=== PATIENT | female | born 1995 | race American Indian/Alaskan Native ===

== ENCOUNTER 2020-12-28 18:07 | Inpatient (IN) | payer MEDICAID ==
[2020-12-28 19:03] LABS: Bilirubin,Urine NEG (Negative); Blood,Urine NEG (Negative); Color,Urine Yellow (Yellow); Mucus,Urine 2+ /HPF; Protein,Urine <15 mg/dL mg/dL (Negative); Urobilinogen,Urine < 2.0 mg/dL (<2.0)
[2020-12-28 19:11] LABS: Hemoglobin 12.4 gm/dl (10.1-14.3); Mean Corpuscular HGB Conc 33 % (30-34); Mean Corpuscular Volume 84 fl (79-97); Platelet Count 311 K/mm3 (140-440); Red Blood Count 4.54 M/mm3 (3.65-5.03); Red Cell Distribution Width 14.7 % (13.2-15.2)
[2020-12-28 19:35] LABS: Alanine Aminotransferase 9 units/L (7-56); Uric Acid 5.5 mg/dL (3.5-7.6)
[2020-12-28] MEDS ORDERED: MAGNESIUM SULFATE 4 GM/100 ML BAG IV ONE (19:39)
[2020-12-28] MEDS ORDERED: DINOPROSTONE 10 MG VAG SUPP VG ONE (19:39)
[2020-12-28] MEDS ORDERED: hydrALAZINE 20 MG/1 ML INJ IV ONE (19:40)
[2020-12-28] MEDS ORDERED: fentaNYL 100 MCG/2 ML INJ IV PRN ×2 (19:50→20:55)
[2020-12-28] MEDS ORDERED: BUTORPHANOL 2 MG/1 ML INJ IV PRN ×3 (19:50→20:55)
[2020-12-28] MEDS ORDERED: AMPICILLIN/NS 2 GM/100 ML 2 GM/100 ML BAG IV ONE ×2 (19:51→20:55)
[2020-12-28] MEDS ORDERED: LACTATED RINGERS 1,000 ML IV SCH (20:00)
[2020-12-28] MEDS ORDERED: LIDOCAINE (2%) 20 MG/1 ML VIAL 20 ML MDV INFILTRATI ONE (20:41)
[2020-12-28] MEDS ORDERED: ePHEDrine SULFATE 50 MG/1 ML INJ IV PRN (20:41)
[2020-12-28] MEDS ORDERED: TERBUTALINE 1 MG/1 ML INJ SUB-Q PRN (20:41)
[2020-12-28] MEDS ORDERED: MINERAL OIL 30 ML ORAL LIQD PO PRN (20:41)
[2020-12-28] MEDS ORDERED: OXYTOCIN DRIP 30 UNITS/500 ML BAG IV SCH ×2 (21:00)
--- NOTE | 2020-12-28 21:13 | History and Physical Report ---
History of Present Illness Date of examination: 12/28/20 Date of admission: 12/28/20 18:29 Chief complaint: "I was sent here by my Dr cause my b/p is up" History of present illness: 25 y/o presented to OB triage at 36.1 wks by LACEY Carter r/t pt's c/o headaches, blurred vision, and edema. She had an elevated b/p and 2+ urine protien. Pt admitted to occ mild uc and active FM. She denied VB or LOF. Pt initiated her pnc at [facility] at 15 1/7 wks. She was co managed by ELIAS r/t maternal obesity. She has a medical hx of anemia and has been taking Fe for same. She had an uti in preg which was treated. Surgical/social hx is unremarkable. Pt reports a family hx of DM. She was admitted to L&D for an IOL r/t severe preeclampsia. Past History Past Medical History: other (anemia, obesity) Past Surgical History: no surgical history Family/Genetic History: diabetes Social history: single, full code - Obstetrical History Expected Date of Delivery: 01/24/21 Actual Gestation: 36 Week(s) 1 Day(s) : 3 Para: 1 Hx # Term Pregnancies: 1 Number of Pregnancies: 0 Spontaneous Abortions: 1 Number of Living Children: 1 Medications and Allergies Allergies Allergy/AdvReac Type Severity Reaction Status Date / Time No Known Allergies Allergy Verified 12/28/20 18:28 Active Meds: Active Medications Butorphanol Tartrate (Butorphanol 2 Mg/1 Ml Inj) 1 mg IV Q2H PRN PRN Reason: Pain, Moderate(4-6) LABOR PAIN Ephedrine Sulfate (Ephedrine Sulfate 50 Mg/1 Ml Inj) 10 mg IV Q2M PRN PRN Reason: Hypotension Magnesium Sulfate (Magnesium Sulfate 40gm/1000ml) 40 gm in 1,000 mls @ 50 mls/hr IV DIRECT MERVAT Lactated Ringer's (Lactated Ringers) 1,000 mls @ 125 mls/hr IV DIRECT MERVAT Last Admin: 12/28/20 20:43 Dose: 125 mls/hr Documented by: Oxytocin/Sodium Chloride (Pitocin/Ns 30 Unit/500ml) 30 units in 500 mls @ 2 mls/hr IV TITR MERVAT; Protocol Oxytocin/Sodium Chloride (Pitocin/Ns 30 Unit/500ml) 30 units in 500 mls @ 40 mls/hr IV TITR MERVAT; Protocol Ampicillin Sodium (Ampicillin/Ns 1 Gm/50 Ml) 1 gm in 50 mls @ 100 mls/hr IV Q4H [facility]; Protocol Labetalol HCl (Labetalol 100 Mg Tab) 100 mg PO BID [facility] Last Admin: 12/28/20 20:34 Dose: 100 mg Documented by: Mineral Oil (Mineral Oil 30 Ml Oral Liqd) 30 ml PO QHS PRN PRN Reason: Constipation Terbutaline Sulfate (Terbutaline 1 Mg/1 Ml Inj) 0.25 mg SUB-Q ONCE PRN PRN Reason: Hyperstimulation/Hypertonicity Review of Systems All systems: negative Eyes: deferred Ears, nose, mouth and throat: deferred Breasts: normal Genitourinary: normal appearance Rectal Exam: deferred - Vital Signs Vital signs: Vital Signs Pulse BP 68 161/91 12/28/20 18:20 12/28/20 18:20 Temp Pulse Resp BP Pulse Ox 98.5 F 65 12 146/83 99 12/28/20 20:36 12/28/20 20:36 12/28/20 20:36 12/28/20 20:36 12/28/20 20:36 - Physical Exam Breasts: Positive: normal Abdomen: Positive: normal appearance, soft, normal bowel sounds Genitourinary (Female): Positive: normal external genitalia, normal perenium Vulva: both: normal Vagina: Positive: normal moisture Uterus: Positive: enlarged, normal contour, other (gravid) Adnexa: both: normal Anus/Rectum: Positive: normal perianal skin Extremities: Positive: normal - Obstetrical FHR: auscultation normal, category 1 Uterine Contraction Monitor Mode: External Cervical Dilatation: 4 Cervical Effacement Percentage: 50 station: -3 Uterine Contraction Frequency (min): irreg Uterine Contraction Pattern: Irregular Uterine Tone Measurement Phase: Resting Uterine Contraction Intensity: Mild Results Result Diagrams: 12/28/20 Unknown 12/28/20 Unknown Abnormal lab results 12/28/20 12/28/20 12/28/20 Range/Units 18:31 Unknown Unknown MCH 27 L (28-32) pg Creatinine 0.5 L (0.6-1.2) mg/dL Lactate Dehydrogenase 191 H (91-180) units/L Urine WBC (Auto) 15.0 H (0.0-6.0) /HPF All other labs normal. Assessment and Plan A: IUP@ 36.1 wks with severe preeclampsia Obesity Hx of asymptomatic anemia GBS unknown P: Admit to L&D Continuous monitoring PIH labs Start MgSo4 per protocal Start Labetalol 100mg po bid MgSo4 levels q 6h GBS protocal Notify NICU Anticipate Consulted with Dr Velasco - Patient Problems (1) labor Current Visit: Yes Status: Acute (2) Preeclampsia Current Visit: Yes Status: Acute
[2020-12-28 21:18] LABS: Hemoglobin 11.5 gm/dl (10.1-14.3); Mean Corpuscular HGB Conc 33 % (30-34); Mean Corpuscular Volume 84 fl (79-97); Platelet Count 290 K/mm3 (140-440); Red Blood Count 4.18 M/mm3 (3.65-5.03); Red Cell Distribution Width 14.6 % (13.2-15.2)
[2020-12-28] MEDS: MAGNESIUM SULFATE 40GM/1000ML 40 GM/1,000 ML BAG IV SCH (21:35)
[2020-12-28 21:41] LABS: Alanine Aminotransferase 8 units/L (7-56); Uric Acid 5.7 mg/dL (3.5-7.6)
[2020-12-29] MEDS ORDERED: ePHEDrine SULFATE 50 MG/1 ML INJ IV PRN (00:14)
[2020-12-29] MEDS ORDERED: NALOXONE 2 MG/2 ML INJ IV PRN (00:14)
--- NOTE | 2020-12-29 00:14 | Anesthesia Consultation ---
Anesthesia Consult and Med Hx Date of service: 12/29/20 - Airway Anesthetic Teeth Evaluation: Good ROM Head & Neck: Adequate Mental/Hyoid Distance: Adequate Mallampati Class: Class II Intubation Access Assessment: Probably Good - Pulmonary Exam CTA: Yes - Cardiac Exam Cardiac Exam: RRR - Pre-Operative Health Status ASA Pre-Surgery Classification: ASA2 Proposed Anesthetic Plan: Epidural - Pulmonary Hx Smoking: No Hx Asthma: No Hx Respiratory Symptoms: No SOB: No COPD: No Home Oxygen Therapy: No Hx Pneumonia: No Hx Sleep Apnea: No - Cardiovascular System Hx Hypertension: Yes Hx Coronary Artery Disease: No Hx Heart Attack/AMI: No Hx Angina: No Hx Percutaneous Transluminal Coronary Angioplasty (PTCA): No Hx Cardia Arrhythmia: No Hx Pacemaker: No Hx Internal Defibrillator: No Hx Valvular Heart Disease: No Hx Heart Murmur: No Hx Peripheral Vascular Disease: No - Central Nervous System Hx Neuromuscular Disorder: No Hx Seizures: No CVA: No Hx Back Pain: No Hx Psychiatric Problems: No - Gastrointestinal Hx Ulcer: No Hx Gastroesophageal Reflux Disease: No - Endocrine Hx Renal Disease: No Hx Cirrhosis: No Hx Liver Disease: No Hx Insulin Dependent Diabetes: No Hx Non-Insulin Dependent Diabetes: No Hx Thyroid Disease: No Hx Hypothyroidism: No Hx Hyperthyroidism: No - Hematic Hx Anemia: No Hx Sickle Cell Disease: No - Other Systems Hx Alcohol Use: No Hx Substance Use: No Hx Cancer: No Hx Obesity: Yes
--- NOTE | 2020-12-29 00:41 | Progress Note ---
Labor Epidural - Labor Epidural Start Time: 00:18 Stop Time: 00:37 Performed by:: JENNIFER MELENDEZ Procedure: Patient is requesting a laboring epidural for laboring pain. Patient IDed, H&P reviewed, all questions and concerns were answered, and consent was signed. Timeout was performed at bedside. Patient in sitting position. Sterile prep and drape was performed. [3] ml of 1% lidocaine skin wheal at L[3]- L [4]. 18- gauge Tuohy epidural needle was advanced to loss of resistance with saline technique 7cm. Negative CSF negative blood. Epidural catheter advanced to [10] centimeters. [NEGATIVE] Aspiration [NEGATIVE] test dose. Sterile dressing applied. Patient tolerated procedure.
[2020-12-29] MEDS: AMPICILLIN/NS 1 GM/50 ML 1 GM/50 ML BAG IV SCH ×2 (01:00→05:15)
[2020-12-29] MEDS ORDERED: fentaNYL-BUPIV 2 MCG/ML-0.125% 200 MCG/100 ML BAG EPIDURAL SCH (01:00)
[2020-12-29] MEDS ORDERED: LIDOCAINE (2%) 20 MG/1 ML VIAL 20 ML MDV INFILTRATI ONE (08:33)
[2020-12-29] MEDS ORDERED: hydrALAZINE 20 MG/1 ML INJ ONE (09:07)
[2020-12-29] MEDS ORDERED: WITCH HAZEL/ GLYCERIN PAD TP PRN (09:33)
[2020-12-29] MEDS ORDERED: PROMETHAZINE 25 MG RECT SUPP PR PRN (09:33)
[2020-12-29] MEDS ORDERED: LANOLIN/ZINC/DIMETHICONE (LANSINOH) 7 GM TP PRN (09:33)
[2020-12-29] MEDS ORDERED: diphenhydrAMINE 25 MG CAP PO PRN (09:33)
[2020-12-29] MEDS ORDERED: MAGNESIUM HYDROXIDE (MOM) ORAL LIQD UDC PO PRN (09:33)
[2020-12-29] MEDS ORDERED: ONDANSETRON 4 MG/2 ML INJ IV PRN (09:33)
[2020-12-29] MEDS ORDERED: PROMETHAZINE 25 MG TAB PO PRN (09:33)
--- NOTE | 2020-12-29 09:49 | Procedure Note ---
OB Delivery Note - Delivery Date of Delivery: 12/29/20 Surgeon: JORGE MORALES Estimated blood loss: 200cc - Vaginal Delivery presentation: vertex Delivery position: OA Intrapartum events: labor-<37 weeks Delivery induction: oxytocin Delivery augmentation: rupture of membranes Delivery monitor: external FHT, external uterine, internal uterine Route of delivery: Delivery placenta: spontaneous Delivery cord: 3 umbilical vessels Episiotomy: none Delivery laceration: none Anesthesia: epidural Delivery comments: Called to for delivery by nurse. SVE 10/100%/+1 and pt was pushing. of a live viable male in OA position. Spontaneous delivery of head and shoulders. Infant was placed on mom's chest for skin to skin bonding while nurse dried and stimulated baby. Delayed cord clamping x 90 sec. Cord was clamped x 2 then FOB was allowed to cut the cord. Afterwards, baby was taken to radiant warmer by nurse for an assess. 8/9. Spontaneous delivery of an intact placenta with CVX3. FF@ U2 with IV Pitocin and fundal massage. An exploration of tears revealed none. EBL 200cc. FW 2248 Gms. Mom and baby was left in stable condition with nurse. Cord blood was obtained. - A at 1 minute: 8 at 5 minutes: 9 Gender: Male (FW 2248 Gms)
[2020-12-29] MEDS ORDERED: IBUPROFEN 600 MG TAB PO SCH (10:00)
[2020-12-29] MEDS: MAGNESIUM SULFATE 40GM/1000ML 40 GM/1,000 ML BAG IV SCH (19:58)
--- NOTE | 2020-12-30 06:23 | Post Anesthesia Evaluation ---
- Post Anesthesia Evaluation Patient Participated: Yes Airway Patent: Yes Stable Respiratory Function: Yes Nausea/Vomiting: No Temp > 96.8F: Yes Pain Manageable: Yes Adequeate Hydration: Yes Anesthesia Complications: No Block Receding Appropriately: Yes Patient on Ventilator: No
--- NOTE | 2020-12-30 06:59 | Progress Note ---
Assessment and Plan A: day 1 S/P . Preeclampsia with severe features. BPs controlled on Labetalol 200 mg po BID. Anemia. Coronavirus positive, asymptomatic. P: Magnesium Sulfate to be discontinued this AM and patient to be transferred to Mother Baby unit. Continue oral Labetalol. Oral iron supplementation. Coronavirus precautions. Subjective - Subjective Date of service: 12/30/20 Principal diagnosis: day 1 S/P ; Preeclampsia with severe features Interval history: Patient denies headache, visual disturbance, N/V, chest pain, cough, shortness of breath, or abdominal pain. Patient reports: appetite normal, pain well controlled, flatus, no nauseated Noel: doing well Objective - Vital Signs Latest vital signs: Vital Signs Temp Pulse Resp BP Pulse Ox 12/30/20 06:53 68 140/90 12/30/20 05:53 81 132/68 12/30/20 04:54 83 156/94 12/30/20 04:40 61 79 L 12/30/20 04:39 88 100 12/30/20 04:34 87 99 12/30/20 04:29 87 99 12/30/20 04:24 81 100 12/30/20 04:19 86 98 12/30/20 04:14 82 99 12/30/20 04:09 88 98 12/30/20 04:04 80 99 12/30/20 03:59 84 100 12/30/20 03:54 89 139/73 100 12/30/20 03:49 82 100 12/30/20 03:44 91 H 100 12/30/20 03:39 91 H 100 12/30/20 03:34 99 12/30/20 03:00 98 F 16 12/30/20 02:09 88 100 12/30/20 02:04 84 100 12/30/20 01:59 91 H 100 12/30/20 01:54 88 128/67 99 12/30/20 01:49 81 100 12/30/20 01:44 85 99 12/30/20 01:32 91 H 100 12/30/20 01:27 91 H 100 12/30/20 01:22 82 100 12/30/20 01:17 90 99 12/30/20 01:12 81 100 12/30/20 01:07 93 H 100 12/30/20 01:02 88 100 12/30/20 00:57 89 100 12/30/20 00:53 77 135/81 12/30/20 00:52 89 100 12/30/20 00:47 81 100 12/30/20 00:42 87 100 12/30/20 00:37 83 99 12/30/20 00:32 85 100 12/30/20 00:27 87 100 12/30/20 00:22 89 99 12/30/20 00:17 89 98 12/30/20 00:12 99 H 94 12/30/20 00:09 87 94 12/30/20 00:07 93 H 98 12/30/20 00:02 93 H 98 12/30/20 00:01 93 H 92 12/29/20 23:57 85 97 12/29/20 23:52 95 H 99 12/29/20 23:42 96 H 149/64 12/29/20 23:27 83 150/70 12/29/20 23:12 98 H 164/78 12/29/20 22:57 93 H 151/71 12/29/20 22:42 100 H 111/55 12/29/20 22:27 84 115/56 12/29/20 22:12 86 126/61 12/29/20 21:57 83 130/63 12/29/20 21:42 92 H 129/61 12/29/20 21:27 104 H 153/86 12/29/20 21:12 83 150/86 12/29/20 20:57 93 H 137/68 12/29/20 20:42 89 148/75 12/29/20 20:27 115 H 133/87 12/29/20 20:12 96 H 134/60 12/29/20 19:57 108 H 145/98 12/29/20 19:56 16 12/29/20 19:49 98.6 F 18 12/29/20 19:41 93 H 149/84 12/29/20 19:26 92 H 149/85 12/29/20 19:11 90 143/80 12/29/20 19:08 94 H 142/81 12/29/20 18:12 91 H 155/85 12/29/20 17:56 87 130/65 12/29/20 17:41 88 127/66 12/29/20 17:26 93 H 130/64 12/29/20 17:11 86 131/64 12/29/20 16:56 85 128/65 12/29/20 16:41 89 125/64 12/29/20 16:27 84 129/65 12/29/20 16:11 85 141/86 12/29/20 15:56 82 141/88 12/29/20 15:41 85 147/92 12/29/20 15:27 88 135/89 12/29/20 15:11 85 151/94 12/29/20 15:09 98.1 F 16 12/29/20 14:56 81 145/92 12/29/20 14:41 86 139/90 12/29/20 14:26 84 147/100 12/29/20 14:11 88 149/98 12/29/20 13:57 80 145/90 12/29/20 13:42 87 153/94 12/29/20 13:33 85 130/76 12/29/20 13:27 85 130/76 12/29/20 13:12 107 H 127/99 12/29/20 12:56 83 145/92 12/29/20 12:41 84 152/95 12/29/20 12:26 88 154/95 12/29/20 12:11 82 135/85 12/29/20 11:56 83 142/91 12/29/20 11:41 88 135/93 12/29/20 11:26 76 142/90 12/29/20 11:12 76 145/90 12/29/20 10:56 83 135/87 12/29/20 10:42 80 130/79 12/29/20 10:26 71 140/82 12/29/20 10:13 80 138/72 12/29/20 09:57 75 147/93 12/29/20 09:42 76 149/83 12/29/20 09:33 79 100 12/29/20 09:28 75 100 12/29/20 09:27 75 143/97 12/29/20 09:23 76 100 12/29/20 09:18 79 99 12/29/20 09:13 78 99 12/29/20 09:11 80 139/75 12/29/20 09:08 97 H 100 12/29/20 09:03 83 100 12/29/20 08:58 91 H 100 12/29/20 08:57 73 93 12/29/20 08:54 76 176/104 12/29/20 08:53 75 100 12/29/20 08:48 72 100 12/29/20 08:43 76 100 12/29/20 08:38 92 H 100 12/29/20 08:37 83 143/79 12/29/20 08:33 78 100 12/29/20 08:28 81 100 12/29/20 08:24 85 155/75 12/29/20 08:23 87 99 12/29/20 08:18 96 H 100 12/29/20 08:13 81 99 12/29/20 08:08 74 144/95 98 12/29/20 08:03 78 100 12/29/20 07:58 77 100 12/29/20 07:53 97.9 F 81 161/74 100 12/29/20 07:48 77 98 12/29/20 07:43 75 99 12/29/20 07:39 75 141/93 12/29/20 07:38 76 99 12/29/20 07:33 74 100 12/29/20 07:28 80 98 12/29/20 07:23 79 99 12/29/20 07:22 74 129/60 12/29/20 07:18 71 99 12/29/20 07:13 74 99 12/29/20 07:08 81 140/65 98 12/29/20 07:07 84 90 12/29/20 07:03 74 99 12/29/20 06:58 74 98 Intake and Output 12/29/20 12/29/20 12/30/20 15:59 23:59 07:59 Intake Total 413.586 6434 Output Total 600 2050 200 Balance -200.833 -1050 -200 Intake: IV 39.167 1000 MAGNESIUM SULFATE 40GM/ 1000 1000ML 40 gm In 1,000 ml @ 2 GM/HR 50 mls/hr IV DIRECT MERVAT Rx#:[id number] PITOCin/NS 30 UNIT/500ML 39.167 30 units In 500 ml @ 40 mls/hr IV TITR MERVAT Rx#: [id number] Oral 360 Output: Urine 600 2050 200 Indwelling Catheter 600 2050 200 Other: Total, Intake Amount 360 Total, Output Amount 600 200 200 Estimated Blood Loss 200 - Exam Cardiovascular: Present: Regular rate, No murmurs Lungs: Present: Clear to auscultation Abdomen: Present: normal appearance, soft. Absent: distention, tenderness, guarding, rigidity Uterus: Present: normal, firm, fundal height below umbilicus. Absent: bogginess, tenderness Extremities: Present: edema (bilateral pedal edema). Absent: tenderness - Labs Labs: Abnormal lab results 12/29/20 12/29/20 12/29/20 Range/Units 06:51 14:16 Unknown Hgb (10.1-14.3) gm/dl Magnesium 3.80 H 4.40 H (1.7-2.3) mg/dL Coronavirus (PCR) Positive A (Negative) 12/30/20 12/30/20 12/30/20 Range/Units 00:23 00:23 05:53 Hgb 10.0 L (10.1-14.3) gm/dl Magnesium 4.70 H 4.60 H (1.7-2.3) mg/dL Coronavirus (PCR) (Negative)
[2020-12-30] MEDS: FERROUS SULFATE 325 MG TAB PO SCH ×2 (10:40→21:42)
[2020-12-30] MEDS: HYDROcodone/ACETAMINOPHEN 5-325 MG TAB PO PRN (18:15)
--- NOTE | 2020-12-31 08:04 | Progress Note ---
Assessment and Plan PPD#2 and covid positive doing well 1. Discharge home and quarantine for 2wks and get tested prior to returning for check in clinic Subjective Date of service: 12/31/20 Principal diagnosis: day 1 S/P ; Preeclampsia with severe features Interval history: Pt has no complaints, denies coughing. pt is bottle feeding. denies pelvic pain and vag bleed less than a period Objective - Constitutional Vitals: Vital Signs - 12hr 12/30/20 12/31/20 21:41 01:44 Temperature 98.9 F Pulse Rate 68 58 L Respiratory 18 Rate Blood Pressure 153/67 143/62 O2 Sat by Pulse 100 Oximetry General appearance: Present: no acute distress - Breasts Breasts: deferred - Cardiovascular Rhythm: regular Extremities: No edema - Gastrointestinal General gastrointestinal: Present: soft, non-tender - Genitourinary Female genitourinary: other (Fundus firm, non-tender and 3cm below the umbilicus) - Labs CBC & Chem 7: 12/30/20 00:23 12/28/20 Unknown Medications & Allergies - Medications Allergies/Adverse Reactions: Allergies No Known Allergies Allergy (Verified 12/30/20 06:59) Active Medications: Generic Name Dose Route Start Last Admin Trade Name Freq PRN Reason Stop Dose Admin Hydrocodone Bitart/Acetaminophen 1 each 12/29/20 21:49 12/30/20 18:15 Hydrocodone/Acetaminophen 5-325 Mg Tab PO 1 each Q8H PRN Administration Pain, Moderate (4-6) Bisacodyl 10 mg 12/29/20 09:33 Bisacodyl [address] BID PRN Constipation Diphenhydramine HCl 25 mg 12/29/20 09:33 Diphenhydramine 25 Mg Cap PO Q6H PRN Itching Ephedrine Sulfate 10 mg 12/29/20 00:14 Ephedrine Sulfate 50 Mg/1 Ml Inj IV Q2M PRN Hypotension Ferrous Sulfate 325 mg 12/30/20 10:00 12/30/20 21:42 Ferrous Sulfate 325 Mg Tab PO 325 mg BID MERVAT Administration Magnesium Sulfate 40 gm in 1,000 mls @ 50 mls/hr 12/28/20 20:00 12/29/20 19:58 Magnesium Sulfate 40gm/1000ml IV 2 gm/hr DIRECT MERVAT 50 mls/hr Administration 2 GM/HR Oxytocin/Sodium Chloride 30 units in 500 mls @ 2 mls/hr 12/28/20 21:00 Pitocin/Ns 30 Unit/500ml IV TITR MERVAT Protocol Oxytocin/Sodium Chloride 30 units in 500 mls @ 40 mls/hr 12/28/20 21:00 12/29/20 08:10 Pitocin/Ns 30 Unit/500ml IV 8 ml/hr TITR MERVAT 8 mls/hr Titration Protocol Fentanyl/Bupivacaine/Sodium Chlor 200 mcg in 100 mls @ 12 mls/hr 12/29/20 01:00 12/29/20 01:02 Fentanyl-Bupiv 2 Mcg/Ml-0.125% EPIDURAL 12 mls/hr TITR MERVAT Administration Protocol Labetalol HCl 200 mg 12/29/20 12:00 12/30/20 21:41 Labetalol 200 Mg Tab PO 200 mg BID MERVAT Administration Mineral Oil 30 ml 12/28/20 20:41 Mineral Oil 30 Ml Oral Liqd PO QHS PRN Constipation Multi-Ingredient Ointment 1 applic 12/29/20 09:33 Lanolin/Zinc/Dimethicone (Lansinoh) 7 Gm TP PRN PRN Sore Nipples Naloxone HCl 0.2 mg 12/29/20 00:14 Naloxone 2 Mg/2 Ml Inj IV Q5M PRN Respiratory sedation Ondansetron HCl 4 mg 12/29/20 09:33 Ondansetron 4 Mg/2 Ml Inj IV Q8H PRN Nausea And Vomiting Sodium Chloride 10 ml 12/29/20 10:00 Sodium Chloride 0.9% 10 Ml Flush Syringe IV 01/03/21 09:59 PRN NR Witch Nupur/Glycerin 1 each 12/29/20 09:33 Witch Nupur/ Glycerin Pad TP PRN PRN Hemorrhoid/cleansing/soothing
--- NOTE | 2020-12-31 08:52 | Discharge Summary ---
Providers - Providers Date of Admission: 12/28/20 18:29 Date of discharge: 12/31/20 Attending physician: JOCELYN LOWE MD Primary care physician: JOCELYN LOWE MD Hospitalization Reason for admission: IUP - , induction of labor (preeclampsia) Delivery: Episiotomy: none Laceration: none Discharge diagnosis: other (preeclampsia), delivery baby: male Hospital course: at 36wks with preeclampsia, hence admission and induction with oxytocin and magnesium sulfate for seizure prophylaxis. pt had uncomplicated vaginal delivery and later COVID test result positive noted and pt placed on isolation and she remained asymptomatic. Pt was given labetalol during labor for BP control and same continued post . course uneventful. Condition at discharge: Good Disposition: DC-01 TO HOME OR SELFCARE Plan - Discharge Medications Prescriptions: labetaloL [Labetalol 200mg TAB] 200 mg PO BID 30 Days #60 tablet Ibuprofen [Motrin] 800 mg PO Q8HR PRN 21 Days #30 tablet PRN Reason: Pain , Severe (7-10) - Provider Discharge Summary Additional instructions: [] Smoking cessation referral if applicable(refer to patient education folder for contact #) [] Refer to [facility] Booklet Call your doctor immediately for: * Fever > 100.5 * Heavy vaginal bleeding ( >1 pad per hour) * Severe persistent headache * Shortness of breath * Reddened, hot, painful area to leg or breast * Drainage or odor from incision. * Keep incision clean and dry at all times and follow doctor's instructions regarding bathing/showering - Follow up plan Follow up: JOCELYN LOWE MD [Primary Care Provider] - 7 Days
[2020-12-31] MEDS ORDERED: MAGNESIUM HYDROXIDE (MOM) ORAL LIQD UDC PO ONE (10:00)
[2020-12-31] MEDS: FERROUS SULFATE 325 MG TAB PO SCH (10:30)
[2020-12-31] MEDS: HYDROcodone/ACETAMINOPHEN 5-325 MG TAB PO PRN (13:20)
[2020-12-31 17:10] VITALS: BP 158/84
== END 2020-12-31 17:11 | disposition home or self-care (01) | DRG 774 ==
LOC: TRG 18:07 → APU 18:08 → LD 18:29 → TRG 18:29 → OBSVTOIN 18:29 → OB 12-30 14:14
PROVIDERS: ADMIT Obstetrics & Gynecology; ATTEND Obstetrics & Gynecology
PROC: 3E0R3BZ Introduction of Anesthetic Agent into Spinal Canal, Percutaneous Approach (ICD-10-PCS; principal; 2020-12-29)
PROC: 00HU33Z Insertion of Infusion Device into Spinal Canal, Percutaneous Approach (ICD-10-PCS; 2020-12-29)
PROC: 3E033VJ Introduction of Other Hormone into Peripheral Vein, Percutaneous Approach (ICD-10-PCS; 2020-12-29)
DX: O14.14 Severe pre-eclampsia complicating childbirth (principal); Z37.0 Single live birth; O98.52 Other viral diseases complicating childbirth; O99.02 Anemia complicating childbirth; O99.214 Obesity complicating childbirth; O60.14X0 Preterm labor third trimester with preterm delivery third trimester, not applicable or unspecified; Z83.3 Family history of diabetes mellitus; Z3A.40 40 weeks gestation of pregnancy; U07.1 COVID-19
CPT/HCPCS: 36415; 59025; 81001; 82565; 83615; 83735; 84450; 84460; 84550; 85014; 85018; 85027; 86592; 86706; 86762; 86850; 86900; 86901; 87086; 87806; 96365; 96366; 96367; 96368; G0378; J0290; J2590; J3475; J7120; U0003